=== PATIENT | male | born 1955 | race Caucasian/White ===

== ENCOUNTER 2019-01-03 12:30 | Outpatient (CLI) | payer BC, SELFPAY ==
[2019-01-03 13:41] LABS: COMMENT (LAB VIEW ONLY) 66.45 mg/dL
[2019-01-03 13:43] LABS: Microalb ug/mg Crea 543.4 ug/mg Cr
[2019-01-03 14:00] LABS: Calculated LDL 179 mg/dL; Cholesterol 265 mg/dL (50-200); HDL Cholesterol 57 mg/dL (40-60); Triglyceride 148 mg/dL (30-150)
== END 2019-01-03 12:50 ==
PROVIDERS: PCP Nurse Practitioner; Visit Provider Nurse Practitioner
DX: I10 Essential (primary) hypertension (principal); E78.00 Pure hypercholesterolemia, unspecified; E11.9 Type 2 diabetes mellitus without complications
CPT/HCPCS: 36415; 80061; 82043; 82570

== ENCOUNTER 2019-09-24 17:46 | Emergency (ER) | payer BC, SELFPAY ==
[2019-09-24] VITALS (31 sets, daily range): BP systolic 122–175; BP diastolic 66–96; PULSE 95–112; RESP 11–29; TEMP 36.8; O2SAT 82–100
[2019-09-24] MEDS: diphenhydrAMINE 25 MG CAP 50 MG PO (17:50)
--- NOTE | 2019-09-24 17:55 | ED.GENADUL_ITS ---
Discharge Plan Disposition Patient Disposition: HOME Condition: Improving Discharge Details Chief Complaint: Allergic Clinical Impression: Bee sting-induced anaphylaxis Primary Care Provider: Radha Canales ED Provider: Brittanie Steven Home Meds and New Rx's Prescriptions: New prednisone 50 mg tablet 50 mg PO DAILY Qty: 4 RF: 0 epinephrine 0.3 mg/0.3 mL auto-injector 0.3 mg IM ONCE PRN (Reason: anaphylaxis) Qty: 1 RF: 0 Continued hydrochlorothiazide 25 mg tablet 25 mg PO DAILY Qty: 90 RF: 3 metoprolol succinate 100 mg tablet extended release 24 hr 100 mg PO DAILY Qty: 90 RF: 3 triamcinolone acetonide 0.1 % cream 1 applic Topical PRN Qty: 453.6 RF: 1 epinephrine [EpiPen 2-[place]] 0.3 mg/0.3 mL auto-injector 0.3 mg IM ONCE Qty: 2 RF: 6 Jardiance 25 mg tablet 25 mg PO DAILY Qty: 90 RF: 3 irbesartan 300 mg tablet 300 mg PO DAILY Qty: 90 RF: 3 vitamin E 1,000 unit Capsule 1,000 unit PO DAILY RF: 0 ascorbic acid (vitamin C) [Vitamin C] 500 mg Tablet 500 mg PO DAILY RF: 0 fluticasone propionate [Flonase Allergy Relief] 50 mcg/actuation [place],Suspension 2 spray INTRANASAL DAILY RF: 0 Discharge Instructions Instructions: General Allergic Reaction (ED) Additional Instructions: Encourage water intake. Please continue with steroids as prescribed. Please keep your EpiPen with you. Please try to avoid bee stings in the future. If you are stung, please administer your EpiPen immediately. If you need to administer this, please seek care urgently after administration. If you develop shortness of breath, difficulty breathing, recurrence of your rash or other new/worsening symptoms please seek care urgently once again. Please follow-up with primary care in the next week for reevaluation. Referrals: Radha Canales NP [Primary Care Provider] - Discharge Data Discharge Date/Time-TO BE ENTERED AT DEPARTURE: 09/24/19 21:59 Medical Decision Making Patient is a pleasant 64-year-old gentleman presenting today with chief complaint of reaction. Patient really was immediately evaluated by myself and nursing staff. He was noted to be tachycardic. He is endorsing shortness of breath. He has a diffuse erythematous rash as well as raised urticaria. Patient's entire face is red but no raised area or rash. Bilateral upper and lower extremities as well as trunk have raised urticarial rash with excoriations. Hear no wheezing or stridor on exam, he is moving air well. Oxygen saturation maintained at 97%. In concern patient is an anaphylaxis will administer IM epinephrine. Will obtain IV access, give Benadryl, methylprednisolone and famotidine. Discussed this plan with the patient who is in agreement. Patient does have an EpiPen at home but did not self administer received was not clear his current reaction warranted this. Continue to monitor the patient. Proximally 1 hour after the above intervention he reports some itching but states that overall he is feeling much improved with improvement of the rash, itching as well as the shortness of breath. Will give Atarax to help with itching. Patient is now reporting that all the symptoms are completely subsided. Reports that his breathing is 100%, rash is completely subsided, he is no longer itching. Denies any GI upset. Drinking in the department unencumbered. Patient discussed treatment options. I urged him to avoid bee sting exposure as much as possible. Patient does report that he does have an EpiPen at home but I will also refer refill. We will begin the patient on a steroid burst. Patient was given strict return precautions. We also discussed topical as well as oral regimens to help with any itching should this recur. He will follow-up with primary care within the next week. All his questions or concerns were addressed and he is in agreement this plan. Patient did remain in department for 4 hours after the epinephrine was administered. HPI General Mode of arrival: ambulatory . Date/Time Provider Initiated Documentation: 09/24/19 17:50 . Limitations to Documentation: no limitations . Information obtained by: patient and RN notes reviewed . HPI Narrative: Patient is a pleasant 64 year old male presenting today with c/c of allergic reaction from bee sting. 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 Is a housekeeper cleaning cooking. Reports that yesterday he was stung twice by a bee. States that he did note swelling and rash. Began himself on prednisone. Patient states that he was previously prescribed prednisone and did have some leftover. States that he was working with the bees again today when he was stung approximately 12 times in bilateral lower extremities he is now endorsing shortness of breath, difficulty breathing and diffuse rash. Denies any chest pain. No intraoral lesions. Has not had any swelling of the throat or mouth. Related Data Home Medications Medication Instructions Recorded Confirmed triamcinolone acetonide 0.1 % 1 applic TOPICAL PRN #453.6 gm 07/30/18 09/24/19 topical cream epinephrine 0.3 mg/0.3 mL 0.3 mg IM ONCE #2 syringe 08/13/18 09/24/19 injection, auto-injector empagliflozin 25 mg tablet 25 mg PO DAILY #90 tab 03/27/19 09/24/19 irbesartan 300 mg tablet 300 mg PO DAILY #90 tab-cap 06/16/19 09/24/19 hydrochlorothiazide 25 mg tablet 25 mg PO DAILY #90 tab 06/24/19 09/24/19 metoprolol succinate 100 mg 100 mg PO DAILY #90 tab 06/24/19 09/24/19 tablet,extended release 24 hr ascorbic acid (vitamin C) [Vitamin 500 mg PO DAILY 09/24/19 09/24/19 C] epinephrine 0.3 mg IM ONCE PRN #1 each 09/24/19 fluticasone propionate [Flonase 2 spray INTRANASAL DAILY 09/24/19 09/24/19 Allergy Relief] prednisone 50 mg PO DAILY #4 tab 09/24/19 vitamin E 1,000 unit PO DAILY 09/24/19 09/24/19 Previous Rx's Medication Instructions Recorded triamcinolone acetonide 0.1 % 1 applic TOPICAL PRN #453.6 gm 07/30/18 topical cream epinephrine 0.3 mg/0.3 mL 0.3 mg IM ONCE #2 syringe 08/13/18 injection, auto-injector empagliflozin 25 mg tablet 25 mg PO DAILY #90 tab 03/27/19 irbesartan 300 mg tablet 300 mg PO DAILY #90 tab-cap 06/16/19 hydrochlorothiazide 25 mg tablet 25 mg PO DAILY #90 tab 06/24/19 metoprolol succinate 100 mg 100 mg PO DAILY #90 tab 06/24/19 tablet,extended release 24 hr epinephrine 0.3 mg IM ONCE PRN #1 each 09/24/19 prednisone 50 mg PO DAILY #4 tab 09/24/19 Allergies Allergy/AdvReac Type Severity Reaction Status Date / Time bee venom protein (honey bee) Allergy Severe Anaphylaxsi Unverified 09/24/19 18:10 s Sulfa (Sulfonamide Allergy unknown Verified 01/07/19 14:18 Antibiotics) amlodipine AdvReac Swelling/Ed Verified 01/07/19 14:18 kiana metformin AdvReac nausea Verified 01/07/19 14:18 General Stated Complaint: Allergic EDOUARD: 2 Review of Systems Constitutional Constitutional: Reports as per HPI, Denies chills, Denies fever(s), Denies headache(s) and Denies snoring Eyes Eyes: Reports as per HPI, Denies eye discharge and Denies irritation ENT Ears, Nose, Mouth, and Throat: Reports as per HPI, Denies change in voice, Denies headache(s), Denies nasal congestion, Denies neck pain, Denies odynophagia, Denies sore throat, Denies throat swelling and Denies tongue swelling Cardiovascular Cardiovascular: Reports as per HPI, Denies chest pain and Reports dyspnea Respiratory Respiratory: Reports as per HPI, Denies cough, Reports dyspnea, Denies snoring and Denies wheezing Gastrointestinal Gastrointestinal: Reports as per HPI, Denies abdominal pain, Denies change in bowel habits, Denies nausea, Denies odynophagia and Denies vomiting Musculoskeletal Musculoskeletal: Denies neck pain Integumentary/Breasts Skin/Breast: Reports as per HPI and Reports rash Neurologic Neurologic: Reports as per HPI and Denies headache(s) Allergic/Immunologic Allergic/Immunologic: Denies throat swelling, Denies tongue swelling and Denies wheezing [facility] Surgical History (Updated 01/02/18 @ 14:35 by [employer] [place]) Appendectomy 1997 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 Brina Parada md and Jose Cruz Yu MD pathology pending. laminectomy 1998 Tonsillectomy 196 Family History Mother No problems noted. Father Prostate cancer Brother No problems noted. Son No problems noted. Son Substance abuse opioids Social History Smoking/Tobacco Use Status: Never Alcohol Intake: current Alcohol Intake frequency: 0-2 drinks per day Alcohol type: wine Substance use type: does not use Do you feel safe at home: Yes Do you feel safe in your relationship?: Yes Exam Const General: cooperative, comfortable, no acute distress, well developed, well groomed and ill appearing acutely Nutritional Appearance: average body habitus and well nourished Orientation: alert and awake [facility] Head: normal to inspection, normocephalic and atraumatic Ears: hearing grossly normal bilaterally, external ears normal and TM's normal bilaterally General nose exam: external nose normal and nares normal Face and sinus: normal facial exam, sinuses nontender and face symmetric Mouth: oral mucosae normal, lip normal, tongue normal, oropharynx normal and moist mucous membranes Teeth and gingiva: dentition normal Throat: posterior oropharynx normal, tonsils normal and uvula midline Eyes General: appearance normal, both eyes and all related structures Neck Neck: normal visual inspection, full ROM, no lymphadenopathy and no meningeal signs Resp Effort & Inspection: normal respiratory effort, able to speak in complete sentences and no respiratory distress Auscultation: clear to auscultation bilaterally, no rales, no rhonchi and no wheezes Cardio Rate: regular rate Rhythm: regular rhythm Heart Sounds: S1 normal and S2 normal GI Inspection: normal to inspection Palpation: soft and nontender Skin Rashes: rashes noted (Diffuse urticarial rash on neck, torso, bilateral upper and lower extremiti) Neuro General: patient alert and patient awake Cognition: normal cognition Speech: speech normal Gait: normal gait Psych Appearance: grossly normal and well kempt Mental Status: mental status grossly normal Speech and Movement: speech and movement normal Course Vital Signs Vital signs: Vital Signs Pulse 112 H 09/24/19 17:51 Respiratory Rate 18 09/24/19 17:51 Blood Pressure 157/88 H 09/24/19 17:51 Pulse Oximetry 97 09/24/19 17:51 Temperature Source Tympanic 09/24/19 17:51 Pulse 112 H 09/24/19 17:51 Respiratory Rate 18 09/24/19 17:51 Respiratory Effort Non-Labored 09/24/19 17:55 Blood Pressure 157/88 H 09/24/19 17:51 Blood Pressure Position Sitting 09/24/19 17:51 Pulse Oximetry 97 09/24/19 17:51 Oxygen Delivery Method Room Air 09/24/19 17:51 Oxygen Flow Rate 0 09/24/19 17:51 Pain Level 0 09/24/19 17:51
[2019-09-24] MEDS: methylPREDNISolone SUCC 125 MG VIAL IVP (17:59)
[2019-09-24] MEDS: Normal Saline 1,000 ML 1000 ML IV (18:00)
[2019-09-24] MEDS: FAMOTIDINE 20 MG/50 ML BAG 200 MG IVPB (18:00)
[2019-09-24] MEDS: hydrOXYzine HCL 25 MG TAB PO (19:57)
== END 2019-09-24 21:59 | disposition home or self-care (01) ==
PROVIDERS: Emergency Provider Physician Assistant; PCP Nurse Practitioner
DX: T63.441A Toxic effect of venom of bees, accidental (unintentional), initial encounter (principal); T78.2XXA Anaphylactic shock, unspecified, initial encounter; R06.02 Shortness of breath; L50.0 Allergic urticaria; L29.8 Other pruritus; Z91.030 Bee allergy status
CPT/HCPCS: 36415; 96361; 96365; 96375; 99284; J2930

== ENCOUNTER 2020-09-02 11:52 | Outpatient (REF) | payer MEDICARE, SELFPAY ==
[2020-09-02 19:08] LABS: HCT 41.9 % (40.0-50.0); HGB 13.9 g/dL (13.5-17.5); MCH 31.3 pg (27.0-33.0); MCHC 33.2 % (32.0-36.0); MCV 94.4 fL (80-95); MPV 10.1 fL (8.0-11.0); Platelet Count 226 10^3/uL (130-400); RBC 4.44 10^6/uL (4.36-5.78); RDW 11.8 % (11.8-14.1); RDW-SD 40.6 fL; WBC 4.17 10^3/uL (4.4-10.8)
[2020-09-02 19:19] LABS: ALT 27 U/L (16-63); AST 14 U/L (15-37); Albumin 4.3 g/dL (3.4-5.0); Alkaline Phosphatase 36 U/L (46-116); Anion Gap 11.1 mmol/L (3-11); BUN 32 mg/dL (7-18); Bilirubin, Total 0.4 mg/dL (0.2-1.0); CO2 25.9 mmol/L (21.0-32.0); CREATININE 1.2 mg/dL (0.70-1.30); Calcium 9.4 mg/dL (8.5-10.1); Calculated LDL 198 mg/dL (<100); Chloride 101 mmol/L (98-107); Cholesterol 292 mg/dL (<200); Glucose 140 mg/dL (74-106); HDL Cholesterol 42 mg/dL (40-60); Potassium 4.4 mmol/L (3.5-5.1); Sodium 138 mmol/L (136-145); Total Protein 7.1 g/dL (6.4-8.2); Triglyceride 262 mg/dL (<150)
== END 2020-09-02 11:53 | disposition home or self-care (01) ==
LOC: LBN 11:52
PROVIDERS: PCP Nurse Practitioner; Visit Provider Nurse Practitioner
DX: E11.9 Type 2 diabetes mellitus without complications (principal); I10 Essential (primary) hypertension; E78.00 Pure hypercholesterolemia, unspecified
CPT/HCPCS: 80053; 80061; 85027

== ENCOUNTER 2020-12-03 09:39 | Emergency (ER) | payer MEDICARE, SELFPAY ==
[2020-12-03 09:44] VITALS: BP 142/77; PULSE 92; RESP 14; O2SAT 97
--- NOTE | 2020-12-03 10:13 | W.ED.GENAD ---
Discharge Plan Disposition Patient Disposition: HOME Condition: Stable Discharge Details Clinical Impression: Swelling of right hand Primary Care Provider: Radha Canales ED Provider: Ray Baron Home Meds and New Rx's Prescriptions: New prednisone 20 mg tablet 60 mg PO DAILY 5 Days Qty: 15 RF: 0 amoxicillin-pot clavulanate [Augmentin] 875-125 mg tablet 1 tab PO BID Qty: 14 RF: 0 Continued cholecalciferol (vitamin D3) 50 mcg (2,000 unit) capsule 50 mcg PO DAILY RF: 0 alpha lipoic acid 600 mg capsule 600 mg PO DAILY RF: 0 epinephrine [EpiPen 2-[place]] 0.3 mg/0.3 mL auto-injector 0.3 mg IM ONCE Qty: 2 RF: 6 Jardiance 25 mg tablet 25 mg PO DAILY Qty: 90 RF: 3 hydrochlorothiazide 25 mg tablet 25 mg PO DAILY Qty: 90 RF: 3 irbesartan 300 mg tablet 300 mg PO DAILY Qty: 90 RF: 3 metoprolol succinate 100 mg tablet extended release 24 hr 100 mg PO DAILY Qty: 90 RF: 3 triamcinolone acetonide 0.1 % cream 1 applic Topical PRN Qty: 453.6 RF: 1 vitamin E 1,000 unit Capsule 1,000 unit PO DAILY RF: 0 ascorbic acid (vitamin C) [Vitamin C] 500 mg Tablet 500 mg PO DAILY RF: 0 fluticasone propionate [Flonase Allergy Relief] 50 mcg/actuation [place],Suspension 2 spray INTRANASAL DAILY RF: 0 epinephrine 0.3 mg/0.3 mL auto-injector 0.3 mg IM ONCE PRN (Reason: anaphylaxis) Qty: 1 RF: 0 Discharge Instructions Additional Instructions: if swelling continues next week follow up with your primary care provider return to the emergency department for severe worsening pain, difficulty breathing, abdominal pain, vomit or if you feel more ill Medical Decision Making 65 yo male with hx of htn, dm, prior anaphylaxis per patient to bee sting when he was stung 15 times at once over a year ago, comes in with left hand swelling. He states he was getting his bee suit on last night and a stinger went into his left posterior pinky. Denies seeing an insect so is not sure if the stinger was embedded on the suit. He had no respiratory or gi symptoms. HE woke up with more swelling of the hand so came here for an evaluation. HAs no hives, respiratory or gi symptoms. HIs posterior left hand is swollen and extends to distal forearm.No significant erythema, has full range of motion of the hand and wrist and normal cap refill, pulses and sensation. Suspect local allergy response and do not feel he requires treatment for anaphyalaxis, clear lungs and no abdomen tenderness. Feel less likely to be cellulitis but will cover with augmentin. Discussed with patient and he is stable for d/c, return precautions given Differential Diagnosis Differential Diagnosis: local allergy reaction, cellulitis HPI General Mode of arrival: ambulatory. Date/Time Provider Initiated Documentation: 12/03/20 09:54. Limitations to Documentation: no limitations. Information obtained by: patient. History of Present Illness 65 year old M presents to the emergency department with the chief complaint of right hand swelling, described as moderate, Quality is described as aching, and is localized to the right and upper extremity. Patient reports no radiation. Patient started experiencing this day(s) (1) and it has been constant. No relieving factors improve symptom(s), No exacerbating factors reported . Patient notes no other symptoms.. Patient did receive the following treatments prior to arrival, none Related Data Home Medications Medication Instructions Recorded Confirmed epinephrine 0.3 mg/0.3 mL 0.3 mg IM ONCE #2 syringe 08/13/18 09/02/20 injection, auto-injector empagliflozin 25 mg tablet 25 mg PO DAILY #90 tab 03/27/19 09/02/20 ascorbic acid (vitamin C) [Vitamin 500 mg PO DAILY 09/24/19 09/02/20 C] epinephrine 0.3 mg IM ONCE PRN #1 each 09/24/19 09/02/20 fluticasone propionate [Flonase 2 spray INTRANASAL DAILY 09/24/19 09/02/20 Allergy Relief] vitamin E 1,000 unit PO DAILY 09/24/19 09/02/20 hydrochlorothiazide 25 mg tablet 25 mg PO DAILY #90 tab 08/26/20 09/02/20 irbesartan 300 mg tablet 300 mg PO DAILY #90 tab-cap 08/26/20 09/02/20 metoprolol succinate 100 mg 100 mg PO DAILY #90 tab 08/26/20 09/02/20 tablet,extended release 24 hr triamcinolone acetonide 0.1 % 1 applic TOPICAL PRN #453.6 gm 08/26/20 09/02/20 topical cream alpha lipoic acid 600 mg capsule 600 mg PO DAILY 09/02/20 cholecalciferol (vitamin D3) 50 50 mcg PO DAILY 09/02/20 mcg (2,000 unit) capsule amoxicillin-pot clavulanate 1 tab PO BID #14 tab 12/03/20 [Augmentin] prednisone 60 mg PO DAILY 5 Days #15 tab 12/03/20 Previous Rx's Medication Instructions Recorded epinephrine 0.3 mg/0.3 mL 0.3 mg IM ONCE #2 syringe 08/13/18 injection, auto-injector empagliflozin 25 mg tablet 25 mg PO DAILY #90 tab 03/27/19 epinephrine 0.3 mg IM ONCE PRN #1 each 09/24/19 hydrochlorothiazide 25 mg tablet 25 mg PO DAILY #90 tab 08/26/20 irbesartan 300 mg tablet 300 mg PO DAILY #90 tab-cap 08/26/20 metoprolol succinate 100 mg 100 mg PO DAILY #90 tab 08/26/20 tablet,extended release 24 hr triamcinolone acetonide 0.1 % 1 applic TOPICAL PRN #453.6 gm 08/26/20 topical cream amoxicillin-pot clavulanate 1 tab PO BID #14 tab 12/03/20 [Augmentin] prednisone 60 mg PO DAILY 5 Days #15 tab 12/03/20 Allergies Allergy/AdvReac Type Severity Reaction Status Date / Time bee venom protein (honey bee) Allergy Severe Anaphylaxsi Verified 09/02/20 09:39 s Sulfa (Sulfonamide Allergy unknown Verified 09/02/20 09:39 Antibiotics) amlodipine AdvReac Swelling/Ed Verified 09/02/20 09:39 kiana metformin AdvReac nausea Verified 09/02/20 09:39 General Stated Complaint: Allergic EDOUARD: 3 Review of Systems All systems reviewed & are unremarkable except as noted in HPI and below Constitutional Constitutional: Denies chills, Denies fever(s) and Denies weakness Cardiovascular Cardiovascular: Denies chest pain and Denies dyspnea Respiratory Respiratory: Denies cough and Denies dyspnea Gastrointestinal Gastrointestinal: Denies abdominal pain, Denies nausea and Denies vomiting Neurologic Neurologic: Denies weakness [facility] Surgical History (Updated 01/02/18 @ 14:35 by [employer] [place]) Appendectomy 1998 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 Brina Parada md and Jose Cruz Yu MD pathology pending. laminectomy 1998 Tonsillectomy 196 Family History Mother No problems noted. Father Prostate cancer Brother No problems noted. Son No problems noted. Son Substance abuse opioids Social History Smoking/Tobacco Use Status: Never Smoking risk assessment performed?: Yes Alcohol Intake: current Alcohol Intake frequency: 0-2 drinks per day Alcohol type: wine Substance use type: does not use Do you feel safe at home: Yes Do you feel safe in your relationship?: Yes Exam Const General: no acute distress Orientation: alert HENMT Head: normal to inspection Ears: external ears normal General nose exam: external nose normal Mouth: moist mucous membranes Eyes General: appearance normal, both eyes and all related structures Neck Neck: normal visual inspection Resp Effort & Inspection: normal respiratory effort and able to speak in complete sentences Cardio Rate: regular rate Skin General skin exam: turgor normal Neuro General: patient alert and patient oriented x3 Extrem General: capillary refill normal Psych Mental Status: mental status grossly normal Course Vital Signs Vital signs: Vital Signs Pulse 92 H 12/03/20 09:44 Respiratory Rate 14 12/03/20 09:44 Blood Pressure 142/77 H 12/03/20 09:44 Pulse Oximetry 97 12/03/20 09:44 Pulse 92 H 12/03/20 09:44 Respiratory Rate 14 12/03/20 09:44 Blood Pressure 142/77 H 12/03/20 09:44 Pulse Oximetry 97 12/03/20 09:44 Oxygen Delivery Method Room Air 12/03/20 09:44 Oxygen Flow Rate 0 12/03/20 09:44 Pain Level 5 12/03/20 09:44
== END 2020-12-03 10:38 | disposition home or self-care (01) ==
PROVIDERS: Emergency Provider Emergency Medicine; PCP Nurse Practitioner
DX: T63.441A Toxic effect of venom of bees, accidental (unintentional), initial encounter (principal); M79.89 Other specified soft tissue disorders; Z87.892 Personal history of anaphylaxis
CPT/HCPCS: 99283

== ENCOUNTER 2020-12-06 04:03 | Outpatient (CLI) | payer MEDICARE, SELFPAY ==
--- NOTE | 2020-12-06 13:00 | NS.NUTBLAN_ITS ---
Felix was referred for Medical Nutrition Therpy for diabetes self management education. Felix reports that he has severe fatigue after meals but does not check his blood sugars at home. Most recent A1C: 6.6%. DM meds: Jardiance. Other pertinent labs: elevated LDL (198) and triglycerides. Refusing metformin and statin drugs. Diet recall indicates mostly well balanced meals with occasional large portions of carbohydrate at dinner from starch and wine. Physically active. Suspect either hyper or hypoglycemia following meals causing fatigue. Session today focused on setting up phone jose for Dexcom 6 continuous glucose monitor. Felix plans on continuing food record to help identify foods that may be causing fatigue. Plan: Nuclear Licensing Engineer will call Felix 12/07/20 to assess blood sugar readings/trends on Dexcom 6. Will schedule fu meeting in 10 days for data analysis.
== END 2020-12-06 04:04 | disposition home or self-care (01) ==
LOC: DS 04:03
PROVIDERS: PCP Nurse Practitioner; Visit Provider Dietitian, Registered
DX: E11.9 Type 2 diabetes mellitus without complications (principal); Z71.3 Dietary counseling and surveillance
CPT/HCPCS: 97802

== ENCOUNTER 2020-12-21 04:41 | Outpatient (CLI) | payer MEDICARE, SELFPAY ==
--- NOTE | 2020-12-21 13:00 | NS.NUTBLAN_ITS ---
Felix returns for Medical Nutrition Therapy for diabetes self management education. Dexcom 6 continuous glucose monitor down loaded. Felix completed 7 day food record to compare to glycemic data. He reports several episodes of fatigue following large meals. Meds: Jardiance Ambulatory Glucose Profile indicates (12/06/20-12/16/20) average glucose level: 151 mg/dl In target range (70-180 mg/dl): 83.7% of time- excellent High range (180-250 mg/dl): 16.3 % of time- acceptable No hypoglycemic events ABP indicates high variation in blood sugar levels during day correlating with fatigue. Suspect fatigue from drop in blood sugars without hypoglycemia. Educated Felix on how to better maintain glycemic control with balanced meals containing protein, fiber and complex carbs. Will follow up in 1 week by phone.
== END 2020-12-21 04:42 | disposition home or self-care (01) ==
PROVIDERS: PCP Nurse Practitioner; Visit Provider Dietitian, Registered
DX: E11.9 Type 2 diabetes mellitus without complications (principal); Z79.84 Long term (current) use of oral hypoglycemic drugs; Z71.3 Dietary counseling and surveillance
CPT/HCPCS: 97802

== ENCOUNTER 2021-01-02 06:01 | Emergency (ER) | payer MEDICARE, SELFPAY ==
[2021-01-02 06:05] VITALS: BP 187/90; PULSE 79; RESP 20; TEMP 36.6; O2SAT 98
--- NOTE | 2021-01-02 06:24 | ED.GENADUL_ITS ---
Discharge Plan Disposition Patient Disposition: HOME Condition: Good Discharge Details Clinical Impression: Otitis externa Primary Care Provider: Radha Canales ED Provider: Kieran Parr Meds and New Rx's Prescriptions: New ciprofloxacin-dexamethasone [Ciprodex] 0.3-0.1 % drops,suspension 4 drp otic (ear) BID Qty: 7.5 RF: 0 Continued (DME) Dexcom G6 Sensor Device See Rx Instructions .ROUTE .MEDSUPPLY Qty: 3 RF: 6 cholecalciferol (vitamin D3) 50 mcg (2,000 unit) capsule 50 mcg PO DAILY RF: 0 alpha lipoic acid 600 mg capsule 600 mg PO DAILY RF: 0 epinephrine [EpiPen 2-[place]] 0.3 mg/0.3 mL auto-injector 0.3 mg IM ONCE Qty: 2 RF: 6 hydrochlorothiazide 25 mg tablet 25 mg PO DAILY Qty: 90 RF: 3 irbesartan 300 mg tablet 300 mg PO DAILY Qty: 90 RF: 3 metoprolol succinate 100 mg tablet extended release 24 hr 100 mg PO DAILY Qty: 90 RF: 3 triamcinolone acetonide 0.1 % cream 1 applic Topical PRN Qty: 453.6 RF: 1 vitamin E 1,000 unit Capsule 1,000 unit PO DAILY RF: 0 fluticasone propionate [Flonase Allergy Relief] 50 mcg/actuation [place],Suspension 2 spray INTRANASAL DAILY RF: 0 epinephrine 0.3 mg/0.3 mL auto-injector 0.3 mg IM ONCE PRN (Reason: anaphylaxis) Qty: 1 RF: 0 Jardiance 25 mg tablet 12.5 mg PO DAILY RF: 0 Discharge Instructions Instructions: Otitis Externa (ED) Additional Instructions: Use the ear drops twice a day as directed. Do not get water in your ear. Tylenol or Motrin for pain. Follow up with Dr. Starr this week. Return to ED for fever, increasing pain, ear/face swelling, other concerns. Referrals: [facility] [Provider Group] Medical Decision Making Patient presenting with ear pain with evidence of canal swelling but no drainage and no obvious abscess visualized. No vesicular lesions seen. No external swelling or erythema. Will start Ciprodex and refer to ENT for recheck this week. Motrin or Tylenol as needed for pain. Return to ED if worse. HPI General Mode of arrival: ambulatory . Date/Time Provider Initiated Documentation: 01/02/21 06:07 . Limitations to Documentation: no limitations . Information obtained by: patient and RN notes reviewed . HPI Narrative: Patient presents to ED with right ear pain. Pain began 4 days ago and has been getting worse. Denies any fever or other URI type symptoms. Denies any throat pain or difficulty swallowing. Denies headache. Reports prior history of cysts which have been lanced in past. Denies any drainage. Pain worse with movement of ear. Seems to radiate down into teeth but denies dental pain. Related Data Home Medications Medication Instructions Recorded Confirmed epinephrine 0.3 mg/0.3 mL 0.3 mg IM ONCE #2 syringe 08/13/18 01/02/21 injection, auto-injector epinephrine 0.3 mg IM ONCE PRN #1 each 09/24/19 01/02/21 fluticasone propionate [Flonase 2 spray INTRANASAL DAILY 09/24/19 01/02/21 Allergy Relief] vitamin E 1,000 unit PO DAILY 09/24/19 01/02/21 hydrochlorothiazide 25 mg tablet 25 mg PO DAILY #90 tab 08/26/20 01/02/21 irbesartan 300 mg tablet 300 mg PO DAILY #90 tab-cap 08/26/20 01/02/21 metoprolol succinate 100 mg 100 mg PO DAILY #90 tab 08/26/20 01/02/21 tablet,extended release 24 hr triamcinolone acetonide 0.1 % 1 applic TOPICAL PRN #453.6 gm 08/26/20 01/02/21 topical cream alpha lipoic acid 600 mg capsule 600 mg PO DAILY 09/02/20 01/02/21 cholecalciferol (vitamin D3) 50 50 mcg PO DAILY 09/02/20 01/02/21 mcg (2,000 unit) capsule blood-glucose sensor #3 ea 12/30/20 12/30/20 Jardiance 12.5 mg PO DAILY 01/02/21 01/02/21 ciprofloxacin-dexamethasone 4 drp OTIC (EAR) BID #7.5 ml 01/02/21 [Ciprodex] Previous Rx's Medication Instructions Recorded epinephrine 0.3 mg/0.3 mL 0.3 mg IM ONCE #2 syringe 08/13/18 injection, auto-injector epinephrine 0.3 mg IM ONCE PRN #1 each 09/24/19 hydrochlorothiazide 25 mg tablet 25 mg PO DAILY #90 tab 08/26/20 irbesartan 300 mg tablet 300 mg PO DAILY #90 tab-cap 08/26/20 metoprolol succinate 100 mg 100 mg PO DAILY #90 tab 08/26/20 tablet,extended release 24 hr triamcinolone acetonide 0.1 % 1 applic TOPICAL PRN #453.6 gm 08/26/20 topical cream blood-glucose sensor #3 ea 12/30/20 ciprofloxacin-dexamethasone 4 drp OTIC (EAR) BID #7.5 ml 01/02/21 [Ciprodex] Allergies Allergy/AdvReac Type Severity Reaction Status Date / Time bee venom protein (honey bee) Allergy Severe Anaphylaxsi Verified 01/02/21 06:07 s Sulfa (Sulfonamide Allergy unknown Verified 01/02/21 06:07 Antibiotics) amlodipine AdvReac Swelling/Ed Verified 01/02/21 06:07 kiana metformin AdvReac nausea Verified 01/02/21 06:07 General Stated Complaint: EarProblem EDOUARD: 5 Review of Systems Narrative: As documented in HPI otherwise negative as below. 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 Brina Parada md and Jose Cruz Yu MD pathology pending. laminectomy 1998 Tonsillectomy 1961 Family History Mother No problems noted. Father Prostate cancer Brother No problems noted. Son No problems noted. Son Substance abuse opioids Social History Smoking/Tobacco Use Status: Never Smoking risk assessment performed?: Yes Alcohol Intake: current Alcohol Intake frequency: 0-2 drinks per day Alcohol type: wine Substance use type: does not use Do you feel safe at home: Yes Do you feel safe in your relationship?: Yes Exam Narrative Exam Narrative: Const: WDWN male in NAD. HEENT: NC/AT. Normal facial exam. Left ear normal with normal TM. Right ear painful with manipulation of pinna or tragus. Selling of canal but no drainage. Unable to see TM. No obvious abscess. Dentition ok without apical percussion tenderness. Eyes: Normal conjunctiva and sclera. Neck: Supple. Trachea midline. No adenopathy. Lungs: Normal respiratory effort. Neuro: A+O x 3. Normal speech, mentation, gait. Cranial nerves II - XII grossly intact. No gross motor or sensory deficit. Course Vital Signs Vital signs: Vital Signs Temperature 97.9 F 01/02/21 06:05 Pulse 79 01/02/21 06:05 Respiratory Rate 20 01/02/21 06:05 Blood Pressure 187/90 H 01/02/21 06:05 Pulse Oximetry 98 01/02/21 06:05 Temperature 97.9 F 01/02/21 06:05 Pulse 79 01/02/21 06:05 Respiratory Rate 20 01/02/21 06:05 Respiratory Effort 01/02/21 06:11 Blood Pressure 187/90 H 01/02/21 06:05 Blood Pressure Position Sitting 01/02/21 06:05 Pulse Oximetry 98 01/02/21 06:05 Oxygen Delivery Method Room Air 01/02/21 06:05 Oxygen Flow Rate 0 01/02/21 06:05 Pain Level 7 01/02/21 06:11
[2021-01-02] MEDS: Ciprofloxacin/Dexameth. 7.5 ML BTL AD (06:27)
== END 2021-01-02 06:44 | disposition home or self-care (01) ==
PROVIDERS: Emergency Provider Emergency Medicine; PCP Nurse Practitioner
DX: H60.591 Other noninfective acute otitis externa, right ear (principal)
CPT/HCPCS: 99283

== ENCOUNTER 2021-09-09 02:23 | Outpatient (CLI) | payer MEDICARE, SELFPAY ==
[2021-09-09 09:39] LABS: HCT 41.1 % (40.0-50.0); HGB 14.2 g/dL (13.5-17.5); MCH 31.8 pg (27.0-33.0); MCHC 34.5 % (32.0-36.0); MCV 92 fL (80-95); MPV 9.5 fL (8.0-11.0); Platelet Count 213 10^3/uL (130-400); RBC 4.46 10^6/uL (4.36-5.78); RDW 12.2 % (11.8-14.1); RDW-SD 41.1 fL; WBC 4.14 10^3/uL (4.4-10.8)
[2021-09-09 09:54] LABS: ESR 4 mm/hr (0-20)
[2021-09-09 10:05] LABS: ALT 20 U/L (16-63); AST 14 U/L (15-37); Albumin 3.9 g/dL (3.4-5.0); Alkaline Phosphatase 31 U/L (46-116); BUN 32 mg/dL (7-18); Bilirubin, Total 0.4 mg/dL (0.2-1.0); CREATININE 1.2 mg/dL (0.70-1.30); Calcium 9.3 mg/dL (8.5-10.1); Calculated LDL 178 mg/dL (<100); Chloride 101 mmol/L (98-107); Cholesterol 280 mg/dL (<200); Glucose 163 mg/dL (74-106); HDL Cholesterol 69 mg/dL (40-60); Potassium 4.4 mmol/L (3.5-5.1); Sodium 137 mmol/L (136-145); Total Protein 7.2 g/dL (6.4-8.2); Triglyceride 168 mg/dL (<150)
== END 2021-09-09 02:24 | disposition home or self-care (01) ==
LOC: LBO 02:23
PROVIDERS: PCP Nurse Practitioner; Visit Provider Nurse Practitioner
DX: E11.9 Type 2 diabetes mellitus without complications (principal); E78.00 Pure hypercholesterolemia, unspecified; I10 Essential (primary) hypertension; M25.50 Pain in unspecified joint; U07.1 COVID-19
CPT/HCPCS: 36415; 80053; 80061; 85027; 85652

== ENCOUNTER 2021-10-18 10:58 | Outpatient (REF) | payer MEDICARE, SELFPAY ==
[2021-10-18 19:08] LABS: COMMENT (LAB VIEW ONLY) 118.04 mg/dL
== END 2021-10-18 10:59 | disposition home or self-care (01) ==
LOC: LBN 10:58
PROVIDERS: PCP Nurse Practitioner; Visit Provider Nurse Practitioner
DX: E11.9 Type 2 diabetes mellitus without complications (principal)
CPT/HCPCS: 82043; 82570

== ENCOUNTER → 2021-10-28 00:11 | Outpatient (CLI) | payer MEDICARE, SELFPAY ==
--- NOTE | 2021-10-28 07:00 | DI.US_ITS ---
Exam(s) US AAA SCREENING EXAM: US AAA SCREENING CLINICAL HISTORY: screening for aaa,z13.6 COMPARISON: No exams were available for comparison FINDINGS: Abdominal Aorta: Proximal: 2.1 cm Mid: 1.6 cm Distal: 1.7 cm Iliacs: Right: 0.8 cm Left: 0.8 cm No significant atherosclerotic disease is seen. IMPRESSION: No evidence of abdominal aortic aneurysm. DATA REPOSITORY:
== END ==
PROVIDERS: PCP Nurse Practitioner; Visit Provider Nurse Practitioner
DX: Z13.6 Encounter for screening for cardiovascular disorders (principal)
CPT/HCPCS: 76706

== ENCOUNTER 2022-01-17 03:12 | Outpatient (CLI) | payer MEDICARE, SELFPAY ==
[2022-01-17 08:56] LABS: ALT 19 U/L (16-63); AST 11 U/L (15-37); Calculated LDL 128 mg/dL (<100); Cholesterol 239 mg/dL (<200); HDL Cholesterol 68 mg/dL (40-60); Triglyceride 217 mg/dL (<150)
== END 2022-01-17 03:13 | disposition home or self-care (01) ==
LOC: LBO 03:12
PROVIDERS: PCP Nurse Practitioner; Visit Provider Nurse Practitioner
DX: E11.9 Type 2 diabetes mellitus without complications (principal); E78.00 Pure hypercholesterolemia, unspecified; I10 Essential (primary) hypertension
CPT/HCPCS: 36415; 80061; 84450; 84460

== ENCOUNTER 2022-06-22 03:29 | Outpatient (CLI) | payer MEDICARE, SELFPAY ==
[2022-06-22 09:14] LABS: Abs Immature Grans 0.01 10^3/uL (0.0-0.06); Absolute Basophil Count 0.05 10^3/uL (0.0-0.2); Absolute Eosinophil Count 0.15 10^3/uL (0.0-0.7); Absolute Lymphocyte Count 1.76 10^3/uL (1.2-3.4); Absolute Monocyte Count 0.65 10^3/uL (0.1-0.8); Absolute Neutrophil Count 2.22 10^3/uL (1.2-6.7); Eosinophils % 3.1; HCT 44.6 % (40.0-50.0); Immature Grans % 0.2; Lymphocytes % 36.4; MCH 30.5 pg (27.0-33.0); MCHC 33.6 % (32.0-36.0); MCV 91 fL (80-95); MPV 9.1 fL (8.0-11.0); Monocytes % 13.4; Neutrophils % 45.9; Platelet Count 230 10^3/uL (130-400); RBC 4.91 10^6/uL (4.36-5.78); RDW 12.1 % (11.8-14.1); WBC 4.84 10^3/uL (4.4-10.8)
[2022-06-22 10:05] LABS: ALT 23 U/L (16-63); AST 13 U/L (15-37); Albumin 4.2 g/dL (3.4-5.0); Alkaline Phosphatase 44 U/L (46-116); Anion Gap 6.9 mmol/L (3-11); BUN 24 mg/dL (7-18); Bilirubin, Total 0.4 mg/dL (0.2-1.0); CO2 31.1 mmol/L (21.0-32.0); CREATININE 1.4 mg/dL (0.70-1.30); Calcium 9.6 mg/dL (8.5-10.1); Calculated LDL 217 mg/dL (<100); Chloride 104 mmol/L (98-107); Cholesterol 325 mg/dL (<200); Estimated GFR 55.09 (mL/min/1.73m2); Glucose 156 mg/dL (74-106); HDL Cholesterol 60 mg/dL (40-60); Potassium 4.5 mmol/L (3.5-5.1); Sodium 142 mmol/L (136-145); Total Protein 7.6 g/dL (6.4-8.2); Triglyceride 241 mg/dL (<150)
== END 2022-06-22 03:30 | disposition home or self-care (01) ==
LOC: LBO 03:29
PROVIDERS: PCP Nurse Practitioner; Visit Provider Nurse Practitioner
DX: E11.9 Type 2 diabetes mellitus without complications (principal); E78.00 Pure hypercholesterolemia, unspecified; I10 Essential (primary) hypertension
CPT/HCPCS: 36415; 80053; 80061; 85025

== ENCOUNTER 2022-09-07 09:42 | Outpatient (CLI) | payer MEDICARE, SELFPAY ==
[2022-09-07 09:45] LABS: Hemoglobin A1C 7.3 % (<5.7)
[2022-09-07 10:01] LABS: Anion Gap 7.5 mmol/L (3-11); BUN 30 mg/dL (7-18); CO2 30.5 mmol/L (21.0-32.0); CREATININE 1.3 mg/dL (0.70-1.30); Calcium 9.1 mg/dL (8.5-10.1); Calculated LDL 132 mg/dL (<100); Chloride 102 mmol/L (98-107); Cholesterol 221 mg/dL (<200); Estimated GFR 60.21 (mL/min/1.73m2); Glucose 153 mg/dL (74-106); HDL Cholesterol 58 mg/dL (40-60); Potassium 4.2 mmol/L (3.5-5.1); Sodium 140 mmol/L (136-145); Triglyceride 156 mg/dL (<150)
== END 2022-09-07 09:43 | disposition home or self-care (01) ==
LOC: LBO 09:42
PROVIDERS: PCP Nurse Practitioner; Visit Provider Nurse Practitioner
DX: E78.00 Pure hypercholesterolemia, unspecified (principal); E11.9 Type 2 diabetes mellitus without complications
CPT/HCPCS: 36415; 80048; 80061; 83036

== ENCOUNTER 2023-07-25 05:21 | Outpatient (CLI) | payer MEDICARE, SELFPAY ==
[2023-07-25 08:59] LABS: ALT 29 U/L (16-63); AST 18 U/L (15-37); Alkaline Phosphatase 39 U/L (46-116); Anion Gap 9.7 mmol/L (3-11); BUN 20 mg/dL (7-18); Bilirubin, Total 0.6 mg/dL (0.2-1.0); CO2 27.3 mmol/L (21.0-32.0); CREATININE 1.3 mg/dL (0.70-1.30); Calculated LDL 101 mg/dL (<100); Chloride 106 mmol/L (98-107); Cholesterol 194 mg/dL (<200); Estimated GFR 59.84 (mL/min/1.73m2); Glucose 144 mg/dL (74-106); HDL Cholesterol 64 mg/dL (40-60); Potassium 4.4 mmol/L (3.5-5.1); Sodium 143 mmol/L (136-145); Triglyceride 147 mg/dL (<150)
== END 2023-07-25 05:22 | disposition home or self-care (01) ==
LOC: LBO 05:21
PROVIDERS: Absent Provider Nurse Practitioner; PCP Nurse Practitioner; Referring Provider Nurse Practitioner; Visit Provider Nurse Practitioner
DX: E11.9 Type 2 diabetes mellitus without complications (principal); I10 Essential (primary) hypertension; E78.5 Hyperlipidemia, unspecified
CPT/HCPCS: 36415; 80053; 80061

== ENCOUNTER → 2024-09-24 15:12 | Outpatient (BNVA) | payer MEDICARE, SELFPAY | PROVIDERS: PCP Family Medicine; Referring Provider Family Medicine; Visit Provider Podiatrist | DX: M79.671 Pain in right foot (principal); L60.0 Ingrowing nail; E11.22 Type 2 diabetes mellitus with diabetic chronic kidney disease; N18.2 Chronic kidney disease, stage 2 (mild); E11.65 Type 2 diabetes mellitus with hyperglycemia | CPT/HCPCS: 99204 ==

== ENCOUNTER → 2024-10-14 08:50 | Outpatient (BNVA) | payer MEDICARE, SELFPAY | PROVIDERS: PCP Family Medicine; Referring Provider Family Medicine; Visit Provider Podiatrist | DX: L60.0 Ingrowing nail (principal); E11.42 Type 2 diabetes mellitus with diabetic polyneuropathy; E11.22 Type 2 diabetes mellitus with diabetic chronic kidney disease; N18.2 Chronic kidney disease, stage 2 (mild); E11.65 Type 2 diabetes mellitus with hyperglycemia; M79.671 Pain in right foot | CPT/HCPCS: 99214 ==

== ENCOUNTER 2024-10-14 10:51 | Outpatient (CLI) | payer MEDICARE, SELFPAY ==
[2024-10-14 10:43] LABS: Abs Immature Grans 0.01 10^3/uL (0.0-0.06); HCT 41.7 % (40.0-50.0); HGB 13.9 g/dL (13.5-17.5); Immature Grans % 0.2 %; MCH 31.0 pg (27.0-33.0); MCHC 33.3 % (32.0-36.0); MCV 93 fL (80-95); MPV 9.5 fL (8.0-11.0); Platelet Count 236 10^3/uL (130-400); RBC 4.48 10^6/uL (4.36-5.78); RDW 12.3 % (11.8-14.1); RDW-SD 42.4 fL; WBC 4.68 10^3/uL (4.4-10.8)
[2024-10-14 11:10] LABS: Hemoglobin A1C 9.0 % (<5.7)
[2024-10-14 11:13] LABS: Anion Gap 9.6 mmol/L (3-11); BUN 29 mg/dL (7-18); CO2 30.4 mmol/L (21.0-32.0); Calcium 9.5 mg/dL (8.5-10.1); Calculated LDL 90 mg/dL (<100); Chloride 99 mmol/L (98-107); Cholesterol 201 mg/dL (<200); Estimated GFR 50.08 (mL/min/1.73m2); Glucose 154 mg/dL (74-106); HDL Cholesterol 61 mg/dL (>or=40); Potassium 4.3 mmol/L (3.5-5.1); Sodium 139 mmol/L (136-145); TSH (W/Ref FT4) 1.99 uIU/mL (0.36-3.74); Triglyceride 252 mg/dL (<150)
[2024-10-14 11:18] LABS: Glucose 500 mg/dL (Negative)
[2024-10-14 11:26] LABS: C & S Indicated? No; RBC 0-2 HPF (0-2); WBC Negative HPF (0-5)
[2024-10-14 21:36] LABS: PSA, Screening 0.7 ng/mL (<=4.5)
== END 2024-10-14 10:52 | disposition home or self-care (01) ==
LOC: LBO 10:52
PROVIDERS: Podiatrist; PCP Family Medicine; Visit Provider Family Medicine
DX: E11.9 Type 2 diabetes mellitus without complications (principal); E78.5 Hyperlipidemia, unspecified; Z13.220 Encounter for screening for lipoid disorders; Z12.5 Encounter for screening for malignant neoplasm of prostate; L97.522 Non-pressure chronic ulcer of other part of left foot with fat layer exposed; I10 Essential (primary) hypertension
CPT/HCPCS: 36415; 80048; 80061; 84153; 99214; 81003; 81015; 83036; 84443; 85025

== ENCOUNTER 2024-11-12 02:19 | Outpatient (CLI) | payer MEDICARE, SELFPAY ==
[2024-11-12 10:32] LABS: Hemoglobin A1C 8.6 % (<5.7)
[2024-11-18 16:55] LABS: Apolipoprotein B, Serum 91 mg/dL; Beta VLDL Cholesterol Not Detected mg/dL (<15); Beta VLDL Triglycerides Not Detected mg/dL (<15); Cholesterol, Total, CDC 200 mg/dL; Chylomicron Cholesterol Not Detected; Chylomicron Triglycerides Not Detected; HDL Cholesterol, CDC 46 mg/dL (>=40); LpX Not detected; Triglycerides, CDC 245 mg/dL; VLDL Triglycerides 155 mg/dL (<120)
== END 2024-11-12 02:20 | disposition home or self-care (01) ==
LOC: LBO 02:19
PROVIDERS: PCP Nurse Practitioner; Referring Provider Family Medicine; Visit Provider Family Medicine
DX: E78.00 Pure hypercholesterolemia, unspecified (principal); E11.65 Type 2 diabetes mellitus with hyperglycemia
CPT/HCPCS: 36415; 80061; 83695; 82172; 82664; 83036

== ENCOUNTER 2024-11-21 12:51 | Outpatient (CLI) | payer MEDICARE, SELFPAY ==
--- NOTE | 2024-11-21 12:45 | RT.EKG_ITS ---
APPROVED REPORT Exam: Resting ECG Reason for Exam: HTN Patient Location: O HR:77 bpm ECG Measurements Heart Rate 77 AXIS IN 159 P 39 QRSd 102 QRS 11 QT 391 T 33 QTc 443 Conclusion Sinus rhythm...normal P axis, V-rate 50- 99 Probable left atrial enlargement...P >50mS, <-0.10mV V1 Otherwise normal ECG
== END 2024-11-21 12:52 | disposition home or self-care (01) ==
LOC: DI.CARD 12:53
PROVIDERS: PCP Nurse Practitioner; Referring Provider Nurse Practitioner; Visit Provider Internal Medicine Cardiovascular Disease
DX: I10 Essential (primary) hypertension (principal); I51.7 Cardiomegaly
CPT/HCPCS: 93010

== ENCOUNTER → 2024-11-21 12:51 | Outpatient (BNVA) | payer MEDICARE, SELFPAY | PROVIDERS: PCP Nurse Practitioner; Referring Provider Nurse Practitioner; Visit Provider Internal Medicine Cardiovascular Disease | DX: I25.84 Coronary atherosclerosis due to calcified coronary lesion (principal); E11.59 Type 2 diabetes mellitus with other circulatory complications; I10 Essential (primary) hypertension; E78.00 Pure hypercholesterolemia, unspecified | CPT/HCPCS: 99214; 93005; 36415; 80048; 85027; 85610; 85730 ==

== ENCOUNTER 2024-11-21 15:08 | Outpatient (CLI) | payer MEDICARE, SELFPAY ==
[2024-11-21 13:58] LABS: HCT 38.5 % (40.0-50.0); HGB 13.0 g/dL (13.5-17.5); MCH 30.7 pg (27.0-33.0); MCHC 33.8 % (32.0-36.0); MCV 91 fL (80-95); MPV 9.4 fL (8.0-11.0); Platelet Count 202 10^3/uL (130-400); RBC 4.23 10^6/uL (4.36-5.78); RDW 12.4 % (11.8-14.1); RDW-SD 40.9 fL; WBC 4.85 10^3/uL (4.4-10.8)
[2024-11-21 14:34] LABS: INR 1.1 (0.9-1.1); PTT Activated 24.4 sec (20.6-30.2); Prothrombin Time 11.0 sec (9.1-11.1)
[2024-11-21 14:54] LABS: Anion Gap 7.4 mmol/L (3-11); BUN 32 mg/dL (7-18); CO2 29.6 mmol/L (21.0-32.0); Calcium 9.8 mg/dL (8.5-10.1); Chloride 101 mmol/L (98-107); Estimated GFR 50.08 (mL/min/1.73m2); Glucose 187 mg/dL (74-106); Potassium 3.9 mmol/L (3.5-5.1); Sodium 138 mmol/L (136-145)
== END 2024-11-21 15:09 | disposition home or self-care (01) ==
LOC: LBO 15:09
PROVIDERS: PCP Nurse Practitioner; Visit Provider Internal Medicine Cardiovascular Disease
DX: I25.84 Coronary atherosclerosis due to calcified coronary lesion (principal); E11.9 Type 2 diabetes mellitus without complications; E78.00 Pure hypercholesterolemia, unspecified; I10 Essential (primary) hypertension
CPT/HCPCS: 36415; 80048; 85027; 85610; 85730

== ENCOUNTER → 2024-12-23 07:58 | Outpatient (BNVA) | payer MEDICARE, SELFPAY | PROVIDERS: PCP Family Medicine; Referring Provider Family Medicine; Visit Provider Podiatrist | DX: L60.0 Ingrowing nail (principal); N18.2 Chronic kidney disease, stage 2 (mild); E11.65 Type 2 diabetes mellitus with hyperglycemia; M79.671 Pain in right foot | CPT/HCPCS: 11750 ==

== ENCOUNTER → 2025-01-12 09:01 | Outpatient (BNVA) | payer MEDICARE, SELFPAY | PROVIDERS: PCP Family Medicine; Referring Provider Family Medicine; Visit Provider Podiatrist | DX: L60.0 Ingrowing nail (principal); E11.22 Type 2 diabetes mellitus with diabetic chronic kidney disease; N18.2 Chronic kidney disease, stage 2 (mild); E11.65 Type 2 diabetes mellitus with hyperglycemia; M79.671 Pain in right foot | CPT/HCPCS: 99213 ==

== ENCOUNTER 2025-01-13 00:56 | Outpatient (CLI) | payer MEDICARE, SELFPAY ==
--- NOTE | 2025-01-13 08:15 | DI.US_ITS ---
Exam(s) US CAROTID EXAM: US CAROTID CLINICAL HISTORY: severe elevation of CAC,CAROTID ARTERY STENOSIS,ATHEROSCLEROSIS. TECHNIQUE: Ultrasound carotids performed using grayscale, color-flow, and spectral Doppler imaging. COMPARISON: No exams were available for comparison FINDINGS: RIGHT CAROTID ARTERY: Plaque: Mild calcific plaque seen in the proximal ICA, the common carotid artery and carotid bulb. Velocity elevation: None. LEFT CAROTID ARTERY: Plaque: There is mild calcific plaque seen in the proximal internal carotid artery in the carotid bulb. Velocity elevation: None. VERTEBRAL ARTERIES: Antegrade flow. Measurements: R Bulb: 95.6cm/s PS / 18.1cm/s ED R CCA: 107.3cm/s PS / 24cm/s ED R ECA: 111.2cm/s PS / 5.3cm/s ED R ICA Prox: 84.8cm/s PS / 22.5cm/s ED R ICA Mid: 61cm/s PS / 21.6cm/s ED R ICA Distal: 77.6cm/s PS /30.3cm/s ED R Vert: 46.1cm/s PS / 15.6cm/s ED R SVR: 0.9 R DVR: 0.8 L Bulb: 75cm/s PS / 24.7cm/s ED L CCA: 85.9cm/s PS / 20.3cm/s ED L ECA: 96.3cm/s PS / 10.5cm/s ED L ICA Prox: 86.8cm/s PS / 31cm/s ED L ICA Mid: 75.9cm/s PS / 27.4cm/s ED L ICA Distal: 48.8cm/s PS / 18.5cm/s ED L Vert: 54.6cm/s PS / 20.6cm/s ED L SVR: 1 L DVR: 1.5 IMPRESSION: No evidence for hemodynamically significant carotid stenosis. Criteria for Carotid Stenosis: Normal: ICA PSV <125 cm/s no plaque or intimal thickening is visible. <50% stenosis: ICA PSV <125 cm/s and plaque or intimal thickening is visible. 50-69% stenosis: ICA PSV is 125-250 cm/s and plaque is visible. >70% stenosis to near occlusion: ICA PSV >250 cm/s with visible plaque and luminal narrowing. DATA REPOSITORY:
== END 2025-01-13 01:16 ==
LOC: DI 00:56
PROVIDERS: PCP Family Medicine; Visit Provider Family Medicine
DX: I25.10 Atherosclerotic heart disease of native coronary artery without angina pectoris (principal); I70.90 Unspecified atherosclerosis
CPT/HCPCS: 93880

== ENCOUNTER → 2025-01-16 09:38 | Outpatient (BNVA) | payer MEDICARE, SELFPAY | PROVIDERS: PCP Family Medicine; Referring Provider Nurse Practitioner; Visit Provider Internal Medicine Cardiovascular Disease | DX: I25.84 Coronary atherosclerosis due to calcified coronary lesion (principal); E78.00 Pure hypercholesterolemia, unspecified; E11.59 Type 2 diabetes mellitus with other circulatory complications; I10 Essential (primary) hypertension | CPT/HCPCS: 99214 ==